=== PATIENT | female | born 1995 | race Caucasian/White ===

== ENCOUNTER 2017-11-02 17:37 | Emergency (ER) | payer BC ==
[~2017-11-02] VITALS: Ht 162.6 cm; Wt 52.2 kg
[2017-11-02 17:41] VITALS: TEMP 36.6; Ht 162.6 cm; Wt 52.2 kg
[2017-11-02] MEDS ORDERED: BCPILLS PO (18:06)
[2017-11-02] MEDS ORDERED: ONDANSETRON 4MG OD TAB PO STA (18:17)
[2017-11-02] MEDS ORDERED: IBUPROFEN 600 MG TAB PO STA (18:17)
--- NOTE | 2017-11-02 18:50 | DIAGNOSTIC IMAGING REPORT ---
HEAD WITHOUT CONTRAST (CT) CLINICAL HISTORY: 22 years-old Female with headache. Acute headache with nausea and neck stiffness TECHNIQUE: Multiple axial CT images of the head were obtained without contrast. A dose lowering technique was utilized adhering to the principles of ALARA. CT DOSE: 537.48 mGy.cm COMPARISON: None. FINDINGS: No acute intracranial hemorrhage, midline shift, intracranial mass, hydrocephalus, territorial ischemia or abnormal extra-axial collection. The calvarium is intact. The paranasal sinuses, mastoid air cells, and middle ear cavities are clear. Note is made of a metopic suture. Bilateral marylou bullosa. IMPRESSION: No acute intracranial abnormality. The above report was generated using voice recognition software. It may contain grammatical, syntax or spelling errors. Electronically signed by: Edd Moore M.D. 11/02/2017 6:48 PM Dictated Date/Time: 11/02/2017 6:47 PM
--- NOTE | 2017-11-02 19:13 | EMERGENCY ROOM VISIT NOTE ---
History Report prepared by Margarette: Vianey Walden Under the Supervision of: Dr. Annmarie Patel M.D. First contact with patient: 18:12 Chief Complaint: HEADACHE Stated Complaint: HEADACHE FOR 5 DAYS, NECK STIFFNESS, NAUSEA History of Present Illness The patient is a 22 year old female who presents to the Emergency Room with complaints of a constant headache for 5 days. The patient states that she hit her head 2 weeks ago. She states that she has not hit her head since then. She reports that she woke up with the headache the morning after drinking a little. She reports that it is in the front between her eyes and in the back bottom part of her head. She states that the pain is worse when she moves her eyes and when she is looking at her laptop. She notes that the pain is in her eyes and is worse in her left eye. She states that it is interfering with her school work. She reports that the pain makes it difficult to focus. She notes that she has taken Tylenol with no relief. The patient complains of back pain, ear pain, and nausea starting today. She states that her pain is like a stiffness. She states her back pain is worse at night when she lies down flat. The patient denies vomiting, a history of headaches, any new exercises, pain with deep breathing, shortness of breath, difficulty walking, difficulty speaking, abnormal eating/drinking, fevers, the chance of , and the use of marijuana. The patient notes that her menstrual cycle is to start in the next few days. Source of History: patient Onset: 5 days ago Position: head Timing: constant Modifying Factors (Worsening): other (moving her eyes and looking at her laptop) Associated Symptoms: + nausea, + back pain, No fevers, No SOB, No vomiting Note: The patient complains of ear pain. The patient denies pain with deep breathing, difficulty walking, difficulty speaking, and abnormal eating/drinking. Review of Systems See HPI for pertinent positives & negatives. A total of 10 systems reviewed and were otherwise negative. Past Medical & Surgical Medical Problems: (1) No Known Active Medical Problems Family History Patient reports no known family medical history. Social History Smoking Status: Never Smoker Alcohol Use: occasionally Marital Status: single Housing Status: lives with roommate Occupation Status: [employer] student Current/Historical Medications Scheduled Control Pills ( Control Pills), 1 TAB PO DAILY Allergies Coded Allergies: No Known Allergies (Unverified , 11/02/17) Physical Exam Vital Signs Date Time Temp Pulse Resp B/P (MAP) Pulse Ox O2 Delivery O2 Flow Rate FiO2 11/02/17 19:27 74 18 122/84 99 11/02/17 17:41 36.6 64 17 137/86 100 Room Air Physical Exam Vital signs reviewed. General: Well-appearing, in no significant distress. HEENT: No scleral icterus, PERRLA, neck supple. Atraumatic. White exudates noted on the tonsils, right greater than left. No meningeal signs. Cardiovascular: Regular rate and rhythm, no extra sounds. Pulmonary: Clear to auscultation bilaterally, normal work of breathing. Abdomen: Soft, nontender, nondistended, positive bowel sounds. Musculoskeletal: Atraumatic, no peripheral edema. Neurologic: Patient awake alert and oriented x 3, full strength in all 4 extremities. Cranial nerves 2 through 12 grossly intact. Skin: Warm, dry, no rash Medical Decision & Procedures ER Provider Diagnostic Interpretation: Radiology results as stated below per my review and radiologist interpretation: HEAD WITHOUT CONTRAST (CT) CLINICAL HISTORY: 22 years-old Female with headache. Acute headache with nausea and neck stiffness TECHNIQUE: Multiple axial CT images of the head were obtained without contrast. A dose lowering technique was utilized adhering to the principles of ALARA. CT DOSE: 537.48 mGy.cm COMPARISON: None. FINDINGS: No acute intracranial hemorrhage, midline shift, intracranial mass, hydrocephalus, territorial ischemia or abnormal extra-axial collection. The calvarium is intact. The paranasal sinuses, mastoid air cells, and middle ear cavities are clear. Note is made of a metopic suture. Bilateral marylou bullosa. IMPRESSION: No acute intracranial abnormality. The above report was generated using voice recognition software. It may contain grammatical, syntax or spelling errors. Electronically signed by: Edd Moore M.D. 11/02/2017 6:48 PM Dictated Date/Time: 11/02/2017 6:47 PM Medications Administered Medications (Trade) Dose Ordered Sig/Jennifer Route Start Time Stop Time Status Last Admin Dose Admin Ibuprofen (Motrin Tab) 600 mg NOW STAT PO 11/02/17 18:17 11/02/17 18:19 DC 11/02/17 18:33 600 MG Ondansetron HCl (Zofran Odt) 4 mg NOW STAT PO 11/02/17 18:17 11/02/17 18:19 DC 11/02/17 18:33 4 MG ED Course 1813: Past medical records reviewed. The patient was evaluated in room C11B. A complete history and physical examination was performed. 1816: Ordered Zofran Odt 4 mg PO, Motrin Tab 600 mg PO. 1903: Upon reevaluation, the patient appeared to have improvement of her symptoms. I discussed findings with her. She verbalized agreement of the treatment plan. The patient was discharged home. Medical Decision DDx: Intracranial hemorrhage, intracranial mass, migraine headache, tension headache , sinusitis, meningitis This patient was evaluated and appeared to be in no significant distress. Physical examination is fairly unrevealing. There exudates noted on the tonsils however a rapid strep swab was negative. Patient has no meningeal signs , negative neurologic exam. CT scan of the head was performed as the patient had a closed head injury and persistent headache. The study is negative for acute intracranial abnormalities. Patient was given ibuprofen 600 mg orally. She was given Zofran 4 mg p.o. Patient was advised to minimize screen time, avoid activity with high risk for head injury until symptoms resolve. She will follow-up with her physician for reevaluation and return to the ER for worsening of symptoms or any medical concerns. Medication Reconcilliation Current Medication List: was personally reviewed by me Blood Pressure Screening Patient's blood pressure: Normal blood pressure Blood pressure disposition: Did not require urgent referral Impression Primary Impression: Post-concussion headache Scribe Attestation The scribe's documentation has been prepared under my direction and personally reviewed by me in its entirety. I confirm that the note above accurately reflects all work, treatment, procedures, and medical decision making performed by me. Departure Information Dispostion Home / Self-Care Referrals No Doctor, Assigned (PCP) Forms HOME CARE DOCUMENTATION FORM, IMPORTANT VISIT INFORMATION Patient Instructions [facility] Additional Instructions Diagnosis: Headache Ibuprofen 600 mg every 6 hours as needed for pain with food. Benadryl 25 mg before bed if having difficulty sleeping. Minimize screen time until symptoms resolve. Avoid excessive alcohol or high risk activity for head injury Follow up with your doctor for reevaluation this week. Return to the ED for worsening of symptoms or any medical concerns.
[2017-11-02 19:27] VITALS: BP 122/84; PULSE 74; O2SAT 99
== END 2017-11-02 19:28 | disposition home or self-care (01) ==
LOC: C.EDB 17:39 → C.EDC 19:28
DX: G44.309 Post-traumatic headache, unspecified, not intractable (principal); Z79.3 Long term (current) use of hormonal contraceptives